=== PATIENT | male | born 1990 | race Caucasian/White ===

== ENCOUNTER 2020-03-21 14:13 | Emergency (ER) | payer MEDICAID ==
[~2020-03-21] VITALS: Ht 170.2 cm; Wt 86.2 kg
[2020-03-21 14:24] VITALS: BP_SYST 140
--- NOTE | 2020-03-21 14:28 | NUR ---
SENT TO NO BEDS
--- NOTE | 2020-03-21 15:39 | NUR ---
PT TO [place] [id number]
--- NOTE | 2020-03-21 15:40 | NUR ---
PT AAO AND AMBULATORY REPORTING LEFT KNEE PAIN AFTER HE SLIPPED AND FELL EARLIER TODAY. PT REPORTS PAIN SCALE 5/10 ON PAIN SCALE. PT IS ABLE TO AMBULATE AND THERE IS NO OBVIOUS DEFORMITY NOTED.
--- NOTE | 2020-03-21 15:42 | NUR ---
ER at bedside examining patient.
[2020-03-21 16:17] VITALS: BP_SYST 107
--- NOTE | 2020-03-21 16:17 | NUR ---
Patient given written and verbal discharge instructions and verbalizes understanding. ER MD discussed with patient the results and treatment provided. Patient in stable condition. ID arm band removed. IV catheter removed intact and dressing applied, no active bleeding. Rx of IBUPROFEN given. Patient educated on pain management and to follow up with PMD. Pain Scale 2/10. Opportunity for questions provided and answered. Medication side effect fact sheet provided.
== END 2020-03-21 16:17 | disposition home or self-care (01) ==
LOC: SED 14:13
DX: S82.092A Other fracture of left patella, initial encounter for closed fracture (principal); W01.0XXA Fall on same level from slipping, tripping and stumbling without subsequent striking against object, initial encounter; Y93.89 Activity, other specified; Y92.89 Other specified places as the place of occurrence of the external cause; Y99.8 Other external cause status
CPT/HCPCS: 73564; 99283